=== PATIENT | female | born 2000 | race Caucasian/White ===

== ENCOUNTER 2021-04-11 11:55 | Emergency (ER) | payer OTHER ==
[~2021-04-11] VITALS: Ht 172.7 cm; Wt 84.1 kg
[2021-04-11] MEDS ORDERED: PREDNISONE20 MG PO (13:05)
[2021-04-11] MEDS ORDERED: ATARAX 25MG25 MG/TAB PO (13:06)
[2021-04-11 13:20] VITALS: BP 135/87; PULSE 74; TEMP 97.5
== END 2021-04-11 13:20 | disposition home or self-care (01) ==
LOC: COL.ER 11:55
DX: L50.9 Urticaria, unspecified (principal)
CPT/HCPCS: J1200; J2930